=== PATIENT | male | born 1945 | race Caucasian/White ===

== ENCOUNTER 2017-04-30 13:31 | Inpatient (IN) | payer MEDICARE, OTHER ==
--- NOTE | ~2017-04-30 | CN ---
Consultation Report [id number] [place]. [address] NAME: ANTON LEA JR : 43 STATUS : ADM IN [facility]#: [id number] AGE: 72 ADM/REG DATE : 04/30/17 MR#: [id number] REPORT SERV DATE: 05/01/17 DICTATED BY: KYRIE BLACKMON DATE: 05/01/17 REPORT STATUS : Draft TRANSCRIBED BY: MODTamiko DATE: 05/01/17 CONSULTATION DATE OF CONSULTATION: REASON FOR CONSULTATION: Anton Lea Jr., is a 72-year-old male who is referred for . CVD PHYSICIAN: Kyrie Blackmon M.D. HISTORY OF PRESENT ILLNESS: Mr. Lea was admitted with UTI and exacerbation of COPD with sepsis. He has been placed on appropriate antibiotics, and during his workup, his troponin was noted to be positive. REVIEW OF SYSTEMS: Negative for chest pain, chest discomfort, palpitations, orthopnea, or dyspnea. Rest is negative. SOCIAL HISTORY: He has cerebral palsy. He is in a care facility. FAMILY HISTORY: Negative for early heart disease. PHYSICAL EXAMINATION: GENERAL: He is disabled with spasm on the right hand side. He is alert and oriented, however, and he is cooperative. LUNGS: Respiration is normal with no accessory muscle use. HEART: Precordium is quiet. No murmur, gallops, or rubs are heard. ABDOMEN: Bowel sounds are active. EXTREMITIES: No edema is found. SKIN: No petechiae are noted. LABORATORY EVALUATION: Troponin is 1.4 yesterday, which has decreased to 0.8 today. EKG shows incomplete right bundle-branch block with questionable poor R-wave progression. ASSESSMENT: Positive troponin in light of sepsis with no cardiac history, no chest pain, and EKG without acute changes. I will add aspirin. We will check an echo on Wednesday, and I will follow up after the echocardiogram. TROY/GIGI Kyrie Consultation Report [id number] [facility] [place]. [address] NAME: ANTON LEA JR : 43 STATUS : ADM IN PAT#: [id number] AGE: 72 ADM/REG DATE : 04/30/17 MR#: [id number] REPORT SERV DATE: 05/01/17 DICTATED BY: KYRIE BLACKMON DATE: 05/01/17 REPORT STATUS : Draft TRANSCRIBED BY: MODL DATE: 05/01/17 Jackie Blackmon / [id number] CC: Jackie Singh M.D.
--- NOTE | ~2017-04-30 | HP ---
History And Physical [id number] [facility] [place]. [address] NAME: ANTON LEA JR : 43 STATUS : ADM IN [facility]#: [id number] AGE: 72 ADM/REG DATE : 04/30/17 MR#: [id number] REPORT SERV DATE: 04/30/17 DICTATED BY: STEPHANIE GILBERT DATE: 04/30/17 REPORT STATUS : Draft TRANSCRIBED BY: MODL DATE: 04/30/17 DATE OF ADMISSION: 04/30/2017 CHIEF COMPLAINT: Possible aspiration and shortness of breath. HISTORY OF PRESENT ILLNESS: Obtained from the patient who is a rather poor historian due to his medical condition as well as his caregiver present at bedside, and also emergency room documents were thoroughly reviewed. There are no prior medical records available for us to review. According to the information available, the patient is a pleasant 72-year-old white man with known history of cerebral palsy, longstanding history of COPD, apparently living in the jail, who was today at his daily activities Center when he apparently the caregiver was called because the patient got choked and was concerned about aspiration. The patient, at baseline, has pureed diet and his snack consisted of coffee and some apple sauce but apparently immediately afterwards, the patient has been choking, coughing, in significant respiratory distress and EMS was called. At the instruction of the caregiver, the patient was sent over by EMS to our emergency room department for further management and evaluation. According to the documentation upon arrival, EMS found the patient extremely short of breath with an oxygen saturation around 80% on room air. The patient was placed on 4 L of oxygen with increasing oxygenation up to 94% O2 sats. He had received IV Solu-Medrol by EMS and nebulizer treatment. Upon arrival in the emergency room, the patient was continued to be in respiratory distress and was placed on BiPAP therapy temporarily due to his shortness of breath. Further history revealing the patient is using a CPAP machine at night but no oxygen throughout the day or at night as well. Further investigation in the emergency room revealed a white cell count of 18,000, hypoxemia and a chest x-ray, with no prior imaging available for comparison showed significant left hemidiaphragm hernia/elevation with very poor lung volumes, therefore because of the above presentation with concern for aspiration pneumonia and sepsis. The patient was referred to the Hospitalist Service for further management and evaluation. Note that the patient has not been to the [facility] before and all his care throughout this year has been at [facility] in [place], [place]. Further evaluation by our medical team revealed the patient has a chronic suprapubic catheter and apparently has been treated for several days for the UTI with Levaquin, last dose was given today, the day of admission. No fever or chills were reported by the caregiver and the patient at baseline has been in his usually state of health until this event happened. The patient was able to be discontinued from his BiPAP and he is comfortable on 4 L of oxygen with oxygen saturation around 99% presently, still slightly tachycardic but no significant respiratory distress. PAST MEDICAL HISTORY: Significant for cerebral palsy; significant for COPD; significant for using a CPAP machine at night; significant for chronic suprapubic bladder catheter with chronic urinary tract infections. Significant for dysphagia. The patient on a modified diet with pureed diet at home. There is no history of diabetes. No history for coronary artery disease. PAST SURGICAL HISTORY: Significant for multiple surgeries for his lower extremities throughout the years related to his cerebral palsy; history of "kidney surgery" when he was a teenager; history of suprapubic bladder catheter placement. The patient being followed by History And Physical [address] [address] NAME: ANTON LEA : 43 STATUS : ADM IN [facility]#: [id number] AGE: 72 ADM/REG DATE : 04/30/17 MR#: [id number] REPORT SERV DATE: 04/30/17 DICTATED BY: STEPHANIE GILBERT DATE: 04/30/17 REPORT STATUS : Draft TRANSCRIBED BY: MODL DATE: 04/30/17 Dr. Platt, Urology. ALLERGIES: REPORTED TO BACTRI. MEDICATIONS: Medications at home according to the list provided, the patient is supposed to take 1. Tylenol 500 to 1000 mg p.o. q.4 hours p.r.n. pain and fever. 2. Albuterol HFA inhaler 2 puffs q.4 hours p.r.n. shortness of breath, albuterol nebulizer inhalation schedule b.i.d. 3. Maalox liquid suspension q.i.d. p.r.n. gastric upset. 4. Valisone ointment b.i.d. p.r.n. skin rash. 5. Advair Diskus 250/50 one inhalation b.i.d. 6. Lasix 40 mg p.o. 2 to 3 times a week p.r.n. for fluid retention. 7. Guaifenesin schedule 400 mg p.o. b.i.d. 8. Robitussin-DM 5 mL p.o. q.4 hours p.r.n. cough and congestion. 9. Xyzal 5 mg p.o. daily. 10.Levaquin 750 mg p.o. daily, started on 04/22/2017, for 10 days. 11.Milk of magnesia p.r.n. if no bowel movement for 3 days. 12.Myrbetriq 25 mg p.o. daily. 13.Singulair 10 mg p.o. daily. 14.Multiple vitamins without minerals one tablet p.o. daily. 15.Zantac 150 mg p.o. at bedtime. 16.Trazodone 100 mg p.o. daily. 17.Tap water enema per rectum on a schedule Wednesday, Wednesday, and Wednesday. 18.Ciclopirox to affected nails daily. 19.Diaper rash cream p.r.n. 20.Debrox eardrops over the counter p.r.n. ears. FAMILY HISTORY: Significant for hypertension. SOCIAL HISTORY: He is living in a jail with a caregiver at home for several years now. Apparently there is another resident in the same jail, to finally taking care of him. Denies tobacco abuse. Denies alcohol abuse. Denies illicit recreational drug abuse. REVIEW OF SYSTEMS: Per H and P, otherwise negative in all review of systems. Please note that the comprehensive review of systems even though limited to the patient's inability to offer a lot of information has been obtained and pertinent positives were including in the H and P, the main concern from patient's caregiver is related to his chronic constipation as the patient needs scheduled Fleet enemas and tap water enemas for treatment. PHYSICAL EXAMINATION: GENERAL: A pleasant, presently much improved, still slightly short of breath but able to talk and respond to cooperate on 4 L of oxygen by nasal cannula, maintaining oxygenation at 99% on 4 L. VITAL SIGNS: Upon arrival in the emergency room, blood pressure 155/79, pulse 120, respiratory rate 28, temperature 98.4, and oxygen saturation 94% on 4 L by nasal cannula. History And Physical [address] [address] NAME: ANTON LEA JR : 43 STATUS : ADM IN PAT#: [id number] AGE: 72 ADM/REG DATE : 04/30/17 MR#: [id number] REPORT SERV DATE: 04/30/17 DICTATED BY: STEPHANIE GILBERT DATE: 04/30/17 REPORT STATUS : Draft TRANSCRIBED BY: GIGI DATE: 04/30/17 HEENT: With bilateral cataracts. Extraocular movements intact. Throat, mild erythema. No exudate. Dry mucosa. Edentulous. No signs of tenderness. NECK: Supple. No JVD. No bruits. No thyromegaly. No lymph nodes. LUNGS: Bilateral air entry with decreased breath sounds at both bases especially on the left lung field with scattered crackles. No wheezing noticed. HEART: Positive S1, S2. Regular rate and rhythm. Tachycardic. Positive mitral regurgitation murmur at the apex. ABDOMEN: Positive bowel sounds. Soft, slightly distended and tympanitic to percussion but no guarding, no rebound tenderness. No hepatosplenomegaly. EXTREMITIES: With decreased range of motion. Osteoarthritic changes. No clubbing, no cyanosis, no edema. Significant muscle wasting. +1 pulses. NEUROLOGIC: Alert and oriented x2. He knows he is in the hospital. He knows his name. He is conversant and answers questions at baseline according to the patient's caregiver present at bedside. Overall physical exam consistent with his longstanding cerebral palsy with spastic paraparesis. The patient at baseline able to use some of his left upper extremity to feed himself which he is able to move and use it at this moment. BACK: With decreased range of motion with kyphoscoliosis present. No localized tenderness. No CVA tenderness. SKIN: No bruises, no rashes, no lacerations. Presence of a suprapubic Mcfarland catheter with no signs of infection around the site. SIGNIFICANT LABORATORY DATA: Chest x-ray (personal reading), very poor inspiration, significant left hemidiaphragm hernia/eventration with bowel gas present. No clear infiltrates noticed. No prior imaging available for comparison. Significant osteopenia/osteoporosis. White cell count 18.8, hemoglobin 14.3, platelet count 311. INR 1.1. Sodium 134, potassium 4.2, chloride 98, bicarb 28, BUN 10, creatinine 0.65, glucose 136, and calcium 8.8. Liver function tests within normal limits except albumin 3.2, BNP 282.3. Lactate level 1.1. Urinalysis not available, not done. Venous blood gas showed pH 7.34/PaCO2 of 49/PaO2 of 54)? venous gas). EKG not available, not done. ASSESSMENT AND PLAN AND PROBLEM LIST: The patient is a pleasant 72-year-old man with history of cerebral palsy, COPD with very poor functional status with dysphagia on modified diet who was admitted due to significant hypoxemia after an aspiration episode. IMPRESSION: 1. Sepsis (likely due to pneumonitis and/or UTI under treatment presently) with significant criteria present in chart such as increased pulse, increased respiratory rate, increased white cell count, and ill appearing. For all the above, we are going to treat with broad spectrum IV antibiotics, for aspiration pneumonitis covering also possible UTI, already undergoing treatment. We are going to check a procalcitonin level and monitor clinical response to medical treatment. Monitor results of cultures. 2. Pulmonary. a. Acute hypoxemic respiratory failure. b. Aspiration pneumonitis likely. c. COPD exacerbation. The patient is wearing a CPAP at night. History And Physical [address] [address] NAME: ANTON LEA JR : 43 STATUS : ADM IN [facility]#: [id number] AGE: 72 ADM/REG DATE : 04/30/17 MR#: [id number] REPORT SERV DATE: 04/30/17 DICTATED BY: STEPHANIE GILBERT DATE: 04/30/17 REPORT STATUS : Draft TRANSCRIBED BY: MODL DATE: 04/30/17 d. Restrictive lung disease with known cerebral palsy and a large left side hemidiaphragm eventration/hernia. For all the above, the patient has been admitted under monitored setting. We are going to provide bronchodilator therapy with flutter valve. We are going to continue oxygen supplementation. Keep the oxygen saturation on 90 to 94% and resume his CPAP machine at night. Use p.r.n. BiPAP if indicated. Provide antibiotic coverages for possible aspiration pneumonia adding Flagyl to IV antibiotic. Check procalcitonin level. Check blood cultures and monitor clinical response to medical treatment. Consider CT scan of the chest if the patient fails to improve as expected. 3. problem. a. UTI complicated due to the presence of a chronic Mcfarland/bladder catheter, presently undergoing already antibiotic treatment. b. Suprapubic Mcfarland catheter present, chronic. For all the above, we are going to continue to monitor urine culture. Try to obtain records from the patient's primary care provider as he has been started on IV Levaquin. 4. Neurologic problem. a. Cerebral palsy with spastic paraparesis. Continue adequate pain control and supportive care. b. Dysphagia. Patient on a modified diet. We are going to continue pureed diet as tolerated. PROGNOSIS: Moderate for this admission, rather poor in medium and long-term due to the patient's poor functional status and comorbidities. Questions were answered in full. Please note also the patient is a full code at this moment as discussed with the patient and patient's caregiver present at bedside. RF/KAYLEIGHL Stephanie Gilbert M.D. / [id number] CC: Perico Esteban M.D.
--- NOTE | ~2017-04-30 | DS ---
Discharge Summary [facility] [address] [place]. [address] NAME: ANTON LEA JR : 43 STATUS : DIS IN PAT#: [id number] AGE: 72 ADM/REG DATE : 04/30/17 MR#: [id number] REPORT SERV DATE: 05/05/17 DICTATED BY: JATINDER CABRALES II DATE: 05/04/17 REPORT STATUS : Draft TRANSCRIBED BY: MODL DATE: 05/04/17 ADMISSION DATE: 04/30/2017 DISCHARGE DATE: 05/04/2017 DISCHARGE DIAGNOSES: 1. Sepsis. 2. Catheter-associated urinary tract infection, present on admission. 3. Acute hypoxic respiratory failure. 4. Acute aspiration pneumonitis. 5. Chronic obstructive pulmonary disease. 6. History of restrictive lung disease. 7. Demand ischemia. 8. History of cerebral palsy. 9. Chronic suprapubic bladder catheter with recurrent urinary tract infections. CONSULT: Dr. Kyrie Blackmon with Cardiology. BRIEF HISTORY OF PRESENT ILLNESS: The patient is a 72-year-old male with the above history, who presented to [facility] due to acute hypoxic respiratory failure concerning for aspiration. For detailed history and physical examination, please see Dr. Stephanie Contreras's note from 04/30/2017. HOSPITAL COURSE: On admission, the patient was started on broad-spectrum antibiotics, including vancomycin and cefepime given his heart rate was elevated and white count of 18. Chest x-ray only showed shallow inspiration with bibasilar discoid atelectasis and lower lung volumes with an increased left hemidiaphragm, but no obvious infiltrate. Subsequent chest x-ray showed only increased vascular congestion with interstitial edema. The patient was stable on 4 L nasal cannula on admission, is down to 2 L, but I have not checked on room air yet. Currently, this is being done and will need home oxygen if he desaturates on 2 L. Otherwise, his lungs are clear and he is breathing well. He was getting Solu-Medrol nebulized treatments, but seems likely he had acute aspiration pneumonitis with doubtful pneumonia. He has existing COPD and restrictive lung disease due to body habitus as well. Regarding his catheter-associated UTI, he had been on Levaquin since the 04/22/2017 and repeat UA appears mostly normal with only trace leukocyte esterase and 2 white blood cells, and asymptomatic. He was continued on his course of Levaquin to finish 14-day course. He also had elevated troponin of 1.43 on admission, likely due to demand ischemia. He had no acute EKG changes and his echocardiogram showed mildly decreased LV systolic function, estimated to be 45%. No wall motion abnormalities or valvular problems. Dr. Kyrie Blackmon advised medical management and he was started on 81 mg aspirin. Otherwise, the patient is stable for discharge. DISCHARGE MEDICATIONS: 1. Aspirin 81 mg p.o. daily. 2. Zantac 150 mg p.o. daily. 3. Lasix 40 mg p.o. two to three times a week p.r.n. fluid. 4. Guaifenesin 400 mg p.o. b.i.d. Discharge Summary [address] [address] NAME: ANTON LEA : 43 STATUS : DIS IN PAT#: [id number] AGE: 72 ADM/REG DATE : 04/30/17 MR#: [id number] REPORT SERV DATE: 05/05/17 DICTATED BY: JATINDER CABRALES II DATE: 05/04/17 REPORT STATUS : Draft TRANSCRIBED BY: GIGI DATE: 05/04/17 5. Levaquin 750 mg p.o., every 1800 hours x2 days. 6. Singulair 10 mg p.o. daily. 7. Multivitamin daily. 8. Mirabegron 25 mg p.o. daily. 9. Trazodone 100 mg p.o. daily. 10.Advair one puff inhale b.i.d. 11.Albuterol 3 mL nebulizer inhaled b.i.d. 12.Tap water enema 1500 mL p.r. Wednesday, Wednesday, and Wednesday. 13.Ciclopirox to affected nails. 14.Xyzal 5 mg p.o. daily. 15.Maalox 15 mL p.o. q.4 times a day p.r.n. 16.Diaper rash cream. 17.Robitussin p.r.n. 18.Tylenol p.r.n. 19.Ventolin two puffs inhaled q.4-6 hours p.r.n. 20.Betamethasone ointment topically p.r.n. rash. 21.Debrox ear drops p.r.n. 22.Milk of magnesia p.r.n. DISCHARGE INSTRUCTIONS: The patient will be discharged back to his detention for further care. DICTATED BY: MD SHANNAN Garcia II/GIGI Jatinder Cabrales II, MD / [id number] CC: MD Perico Garcia II, M.D.
[~2017-04-30 13:31] MED LIST: ADVAIR250 INH; CICLOPIROX TOP; MULTIPLE VIT PO; SINGULAIR1 PO; TAP WATER ENEMA PR; XPECT400 MG PO; XYZAL5 MG PO
[2017-04-30] MEDS ORDERED: MYRBETRIQ25 MG PO (13:32)
[2017-04-30] MEDS ORDERED: ZANTAC150 MG PO (13:32)
[2017-04-30] MEDS ORDERED: TRAZ100 PO (13:33)
[2017-04-30 13:34] LABS: BASOPHILS 0.1 %; BASOPHILS ABSOLUTE 0.02 10/3/uL (0.0-0.16); EOSINOPHILS 0.2 %; EOSINOPHILS ABSOLUTE 0.04 10/3/uL (0.0-0.53); HEMATOCRIT 42.9 % (40.0-51.0); HEMOGLOBIN 14.3 g/dL (13.6-17.8); IMMATURE GRANULOCYTES 0.4 %; IMMATURE GRANULOCYTES ABSOLUTE 0.07 10/3/uL (0.0-0.11); LYMPHOCYTES 1.5 %; LYMPHOCYTES ABSOLUTE 0.29 10/3/uL (0.67-4.30); MANUAL DIFF NO %; MEAN CORPUS HGB CONC 33.3 g/dL (32.0-36.0); MEAN CORPUSCULAR HEMOGLOB 30.2 pg (26.0-34.0); MEAN CORPUSCULAR VOLUME 90.5 fL (80-100); MEAN PLATELET VOLUME 9.9 fL (9.2-13.0); MONOCYTES 1.1 %; NEUTROPHILS 96.7 %; NEUTROPHILS ABSOLUTE 18.19 10/3/uL (2.02-8.40); PLATELET COUNT 311 10/3/uL (150-400); RBC DISTRIBUTION WIDTH 13.5 % (12.0-16.0); RED CELL COUNT 4.74 10/6/uL (4.7-6.1); WHITE BLOOD CELLS 18.8 10/3/uL (4.5-10.5)
[2017-04-30 13:34] LABS: BE (BASE EXCESS) -0.6 MEQ/L (0 +/- 2.5); HCO3 (ACTUAL BICARBONATE) 25.7 MEQ/L (23-27); HEMOBLOGIN CONTENT 15.4 G/DL (14-18); INSTRUMENT SERIAL # 8087; METHEMOGLOBIN 0.3 % (0-3); O2 CONTENT 18.2 VOL% (18-24); OPERATOR ID 14335; PCO2 (CO2 TENSION) 49 MMHG (35-45); PO2 (O2 TENSION) 54 MMHG (79-93); SAMPLE Venous; pH 7.34 (7.37-7.43)
[2017-04-30] MEDS ORDERED: MAALOX PO (13:35)
[2017-04-30] MEDS ORDERED: DIAPER RASH TOP (13:38)
[2017-04-30] MEDS ORDERED: GGDM5ML PO (13:39)
[2017-04-30] MEDS ORDERED: ACET500CAP PO (13:41)
[2017-04-30] MEDS ORDERED: L40 PO (13:43)
[2017-04-30] MEDS ORDERED: VENTOLIN HFA INH (13:45)
[2017-04-30] MEDS ORDERED: VALISONE OINT 015 GM TOP (13:47)
[2017-04-30 13:49] LABS: INTERNATIONAL NORMAL RATI 1.1 UNITS (-); PROTIME (NOT ORD) 14.2 SEC (12.0-14.5)
[2017-04-30] MEDS ORDERED: DEBROX EAR DROPS OT (13:51)
[2017-04-30 13:52] LABS: A/G RATIO 0.7 (0.7-1.9); ALBUMIN 3.2 G/DL (3.5-5.0); ALKALINE PHOSPHATASE 86 U/L (45-117); BUN (BLOOD UREA NITROGEN) 10 MG/DL (6-23); CALCIUM, SERUM 8.8 MG/DL (8.5-10.4); CHLORIDE, SERUM 98 MMOL/L (96-112); CO2 (CARBON DIOXIDE) 28 MMOL/L (24-34); CREATININE 0.65 MG/DL (0.70-1.30); GFR AFRICAN AMERICAN 112 ML/MIN (>=60); GFR NON AFRICAN AMERICAN 97 ML/MIN (>=60); GLOBULIN 4.3 G/DL (2.5-4.1); GLUCOSE, SERUM 136 MG/DL (60-99); POTASSIUM, SERUM 4.2 MMOL/L (3.5-5.3); SGOT(AST) 16 U/L (5-40); SGPT(ALT) 20 U/L (5-65); SODIUM, SERUM 134 MMOL/L (135-148); TOTAL BILIRUBIN 0.3 MG/DL (0-1.2); TOTAL PROTEIN 7.5 G/DL (6.0-8.5)
[2017-04-30] MEDS ORDERED: ALBUTEROL0.083 % INH (13:57)
[2017-04-30] MEDS ORDERED: LEVAQUIN750 MG PO (13:59)
[2017-04-30] MEDS ORDERED: MOMUD PO (14:02)
[2017-04-30 21:34] LABS: CK-MB 2.8 NG/ML; CPK 143 U/L (0-200); FREE T4 1.24 NG/DL (0.76-1.46); PHOSPHORUS, SERUM 3.7 MG/DL (2.5-4.5)
[2017-04-30 21:35] LABS: TROPONIN I 1.43 NG/ML (<0.05)
[2017-04-30 22:13] LABS: PROCALCITONIN 0.07 ng/mL (<0.5)
[2017-05-01 01:13] LABS: INTERNATIONAL NORMAL RATI 1.2 UNITS (-); PARTIAL THROMBO TIME 32.2 SEC (22.5-37.2); PROTIME (NOT ORD) 14.7 SEC (12.0-14.5)
[2017-05-01 07:45] LABS: BASOPHILS 0 %; EOSINOPHILS 0.1 %; EOSINOPHILS ABSOLUTE 0.01 10/3/uL (0.0-0.53); HEMATOCRIT 39.8 % (40.0-51.0); HEMOGLOBIN 13.4 g/dL (13.6-17.8); IMMATURE GRANULOCYTES 0.3 %; IMMATURE GRANULOCYTES ABSOLUTE 0.03 10/3/uL (0.0-0.11); LYMPHOCYTES 8.7 %; MEAN CORPUS HGB CONC 33.7 g/dL (32.0-36.0); MEAN CORPUSCULAR HEMOGLOB 29.7 pg (26.0-34.0); MEAN CORPUSCULAR VOLUME 88.2 fL (80-100); MEAN PLATELET VOLUME 9.9 fL (9.2-13.0); MONOCYTES 1.7 %; MONOCYTES ABSOLUTE 0.16 10/3/uL (0.21-1.20); NEUTROPHILS 89.2 %; NEUTROPHILS ABSOLUTE 8.23 10/3/uL (2.02-8.40); PLATELET COUNT 301 10/3/uL (150-400); RBC DISTRIBUTION WIDTH 13.6 % (12.0-16.0); RED CELL COUNT 4.51 10/6/uL (4.7-6.1)
[2017-05-01 07:48] LABS: MANUAL DIFF NO %; WHITE BLOOD CELLS 9.2 10/3/uL (4.5-10.5)
[2017-05-01 08:04] LABS: ALBUMIN 2.8 G/DL (3.5-5.0); BUN (BLOOD UREA NITROGEN) 11 MG/DL (6-23); CALCIUM, SERUM 8.5 MG/DL (8.5-10.4); CHLORIDE, SERUM 102 MMOL/L (96-112); CO2 (CARBON DIOXIDE) 29 MMOL/L (24-34); CREATININE 0.62 MG/DL (0.70-1.30); GFR AFRICAN AMERICAN 114 ML/MIN (>=60); GFR NON AFRICAN AMERICAN 98 ML/MIN (>=60); GLUCOSE, SERUM 144 MG/DL (60-99); POTASSIUM, SERUM 3.6 MMOL/L (3.5-5.3); SODIUM, SERUM 135 MMOL/L (135-148)
[2017-05-01 08:05] LABS: CK-MB 3.9 NG/ML; CPK 187 U/L (0-200); PHOSPHORUS, SERUM 2.5 MG/DL (2.5-4.5); TROPONIN I 0.86 NG/ML (<0.05)
[2017-05-01 13:01] LABS: PROCALCITONIN 0.26 ng/mL (<0.5)
[2017-05-01 23:48] LABS: ASCORBIC ACID (UR NOT ORDER) 40 (NEG); BILIRUBIN, URINE NEGATIVE (NEG); KETONE, URINE NEGATIVE (NEG); LEUKOCYTE ESTERASE(NOT OR TRACE (NEG); WBC (NOT ORDERED) (RFLEX) 2 (0-5)
[2017-05-02 04:06] LABS: BASOPHILS 0.1 %; BASOPHILS ABSOLUTE 0.01 10/3/uL (0.0-0.16); EOSINOPHILS 0 %; HEMATOCRIT 38.6 % (40.0-51.0); HEMOGLOBIN 12.8 g/dL (13.6-17.8); IMMATURE GRANULOCYTES 0.6 %; LYMPHOCYTES 6.6 %; LYMPHOCYTES ABSOLUTE 1.19 10/3/uL (0.67-4.30); MEAN CORPUS HGB CONC 33.2 g/dL (32.0-36.0); MEAN CORPUSCULAR HEMOGLOB 29.5 pg (26.0-34.0); MEAN CORPUSCULAR VOLUME 88.9 fL (80-100); MEAN PLATELET VOLUME 10.8 fL (9.2-13.0); MONOCYTES 6.6 %; NEUTROPHILS 86.1 %; NEUTROPHILS ABSOLUTE 15.56 10/3/uL (2.02-8.40); PLATELET COUNT 333 10/3/uL (150-400); RBC DISTRIBUTION WIDTH 13.5 % (12.0-16.0); RED CELL COUNT 4.34 10/6/uL (4.7-6.1)
[2017-05-02 04:14] LABS: MANUAL DIFF NO %; WHITE BLOOD CELLS 18.1 10/3/uL (4.5-10.5)
[2017-05-02 04:15] LABS: ALBUMIN 2.6 G/DL (3.5-5.0); BUN (BLOOD UREA NITROGEN) 16 MG/DL (6-23); CALCIUM, SERUM 8.2 MG/DL (8.5-10.4); CHLORIDE, SERUM 103 MMOL/L (96-112); CO2 (CARBON DIOXIDE) 27 MMOL/L (24-34); CREATININE 0.66 MG/DL (0.70-1.30); GFR AFRICAN AMERICAN 111 ML/MIN (>=60); GFR NON AFRICAN AMERICAN 96 ML/MIN (>=60); GLUCOSE, SERUM 115 MG/DL (60-99); PHOSPHORUS, SERUM 2.5 MG/DL (2.5-4.5); POTASSIUM, SERUM 3.8 MMOL/L (3.5-5.3); SODIUM, SERUM 138 MMOL/L (135-148)
[2017-05-03 06:49] LABS: BASOPHILS 0 %; EOSINOPHILS 0 %; HEMATOCRIT 40.8 % (40.0-51.0); HEMOGLOBIN 13.7 g/dL (13.6-17.8); IMMATURE GRANULOCYTES 0.4 %; IMMATURE GRANULOCYTES ABSOLUTE 0.05 10/3/uL (0.0-0.11); LYMPHOCYTES 4.5 %; LYMPHOCYTES ABSOLUTE 0.57 10/3/uL (0.67-4.30); MEAN CORPUS HGB CONC 33.6 g/dL (32.0-36.0); MEAN CORPUSCULAR HEMOGLOB 29.9 pg (26.0-34.0); MEAN CORPUSCULAR VOLUME 89.1 fL (80-100); MEAN PLATELET VOLUME 10.4 fL (9.2-13.0); MONOCYTES 3.3 %; MONOCYTES ABSOLUTE 0.41 10/3/uL (0.21-1.20); NEUTROPHILS 91.8 %; PLATELET COUNT 352 10/3/uL (150-400); RBC DISTRIBUTION WIDTH 13.5 % (12.0-16.0); RED CELL COUNT 4.58 10/6/uL (4.7-6.1); WHITE BLOOD CELLS 12.5 10/3/uL (4.5-10.5)
[2017-05-03 06:52] LABS: MANUAL DIFF NO %
[2017-05-03 06:54] LABS: ALBUMIN 2.8 G/DL (3.5-5.0); BUN (BLOOD UREA NITROGEN) 16 MG/DL (6-23); CALCIUM, SERUM 8.2 MG/DL (8.5-10.4); CHLORIDE, SERUM 99 MMOL/L (96-112); CO2 (CARBON DIOXIDE) 30 MMOL/L (24-34); CREATININE 0.65 MG/DL (0.70-1.30); GFR AFRICAN AMERICAN 112 ML/MIN (>=60); GFR NON AFRICAN AMERICAN 97 ML/MIN (>=60); GLUCOSE, SERUM 126 MG/DL (60-99); POTASSIUM, SERUM 3.5 MMOL/L (3.5-5.3); SGOT(AST) 25 U/L (5-40); SGPT(ALT) 28 U/L (5-65); SODIUM, SERUM 134 MMOL/L (135-148); TOTAL BILIRUBIN 0.3 MG/DL (0-1.2); TOTAL PROTEIN 6.2 G/DL (6.0-8.5)
[2017-05-03 06:56] LABS: A/G RATIO 0.8 (0.7-1.9); ALKALINE PHOSPHATASE 60 U/L (45-117); GLOBULIN 3.4 G/DL (2.5-4.1)
[2017-05-04 05:16] LABS: BASOPHILS 0.1 %; BASOPHILS ABSOLUTE 0.01 10/3/uL (0.0-0.16); EOSINOPHILS 0.1 %; EOSINOPHILS ABSOLUTE 0.01 10/3/uL (0.0-0.53); HEMATOCRIT 43.5 % (40.0-51.0); HEMOGLOBIN 14.8 g/dL (13.6-17.8); IMMATURE GRANULOCYTES 0.5 %; IMMATURE GRANULOCYTES ABSOLUTE 0.06 10/3/uL (0.0-0.11); LYMPHOCYTES 10.9 %; LYMPHOCYTES ABSOLUTE 1.43 10/3/uL (0.67-4.30); MEAN CORPUSCULAR HEMOGLOB 30.2 pg (26.0-34.0); MEAN CORPUSCULAR VOLUME 88.8 fL (80-100); MEAN PLATELET VOLUME 10.4 fL (9.2-13.0); MONOCYTES 15.1 %; MONOCYTES ABSOLUTE 1.97 10/3/uL (0.21-1.20); NEUTROPHILS 73.3 %; NEUTROPHILS ABSOLUTE 9.58 10/3/uL (2.02-8.40); PLATELET COUNT 358 10/3/uL (150-400); RBC DISTRIBUTION WIDTH 13.6 % (12.0-16.0); WHITE BLOOD CELLS 13.1 10/3/uL (4.5-10.5)
[2017-05-04 05:17] LABS: MANUAL DIFF NO %
[2017-05-04 05:35] LABS: BUN (BLOOD UREA NITROGEN) 15 MG/DL (6-23); CALCIUM, SERUM 8.8 MG/DL (8.5-10.4); CHLORIDE, SERUM 98 MMOL/L (96-112); CO2 (CARBON DIOXIDE) 34 MMOL/L (24-34); CREATININE 0.59 MG/DL (0.70-1.30); GFR AFRICAN AMERICAN 116 ML/MIN (>=60); GFR NON AFRICAN AMERICAN 100 ML/MIN (>=60); PHOSPHORUS, SERUM 1.9 MG/DL (2.5-4.5); POTASSIUM, SERUM 3.6 MMOL/L (3.5-5.3); SODIUM, SERUM 138 MMOL/L (135-148)
[2017-05-04 05:36] LABS: GLUCOSE, SERUM 89 MG/DL (60-99)
[2017-05-04] MEDS ORDERED: ASAB PO (09:58)
[2017-05-04] MEDS ORDERED: LEVAQUIN750 MG PO (10:02)
[2017-05-26] MEDS ORDERED: ADVAIR250 INH (22:51)
[2017-05-26] MEDS ORDERED: CICLOPIROX TOP (22:52)
[2017-05-26] MEDS ORDERED: FENESIN IR400 MG PO (22:52)
[2017-05-26] MEDS ORDERED: XYZAL5 MG PO (22:52)
[2017-05-26] MEDS ORDERED: MYRBETRIQ25 MG PO (22:53)
[2017-05-26] MEDS ORDERED: MULTIVITAMI1 PO (22:53)
[2017-05-26] MEDS ORDERED: ZANTAC150 MG PO (22:53)
[2017-05-26] MEDS ORDERED: SINGULAIR1 PO (22:53)
[2017-05-26] MEDS ORDERED: TAP WATER ENEMA PR (22:54)
[2017-05-26] MEDS ORDERED: TRAZ100 PO (22:54)
[2017-05-26] MEDS ORDERED: ASAB PO (22:55)
[2017-05-26] MEDS ORDERED: PROLOP100 PO (22:55)
[2017-05-26] MEDS ORDERED: ALBUTEROL0.63 MG/3 INH (22:55)
[2017-05-26] MEDS ORDERED: ACET500CAP PO (22:56)
[2017-05-26] MEDS ORDERED: VENTOLIN HFA INH (22:57)
[2017-05-26] MEDS ORDERED: VALISONE OINT 015 GM TOP (22:57)
[2017-05-26] MEDS ORDERED: CEFT2 PO (22:58)
[2017-05-28] MEDS ORDERED: AUG875 PO (15:25)
[2017-05-28] MEDS ORDERED: FLORASTOR250 MG PO (15:26)
== END 2017-05-04 17:03 | disposition home or self-care (01) | DRG 698 ==
LOC: ER 13:31 → 7NO 18:19
PROVIDERS: Emergency Medicine; Hospitalist; Internal Medicine
DX: T83.518A Infection and inflammatory reaction due to other urinary catheter, initial encounter (principal); A41.9 Sepsis, unspecified organism; J96.01 Acute respiratory failure with hypoxia; J69.0 Pneumonitis due to inhalation of food and vomit; J44.1 Chronic obstructive pulmonary disease with (acute) exacerbation; I24.8 Other forms of acute ischemic heart disease; N39.0 Urinary tract infection, site not specified; Z99.81 Dependence on supplemental oxygen; G80.9 Cerebral palsy, unspecified
CPT/HCPCS: 36600; 71010; 80048; 80053; 80069; 81001; 82550; 82553; 82805; 83605; 83735; 83880; 84100; 84145; 84439; 84443; 84484; 85025; 85610; 85730; 87040; 93005; 94640; 94660; 94667; 94668; 99285; A9270-GY; C8929; J0456; J0692; J2930; J3370; Q9957